=== PATIENT | female | born 1945 | race Caucasian/White ===

== ENCOUNTER → 2017-01-07 | Outpatient (CLI) | payer BC ==
[~2017-01-07] MED LIST: CALC-112 PO; CETI-222 PO; GLUC-149 PO; LEVO100T PO; OMEG1CAP6 PO; OMEP40CA6 PO; PREMARIN VAG VG; RALO60TA PO; REGADENOSON 0.4 MG/5 ML SYRINGE ONE; RIZA10TA20 PO; ROSU10TA PO
== END | disposition home or self-care (01) ==
LOC: CFH 12:08
PROVIDERS: ATTEND Internal Medicine Cardiovascular Disease
DX: Z01.810 Encounter for preprocedural cardiovascular examination (principal); I25.9 Chronic ischemic heart disease, unspecified; I44.7 Left bundle-branch block, unspecified
CPT/HCPCS: 78452; 93017; 93306; A9502; J2785

== ENCOUNTER 2017-02-03 10:02 | Day surgery (SDC) | payer BC ==
[2017-02-01 09:41] VITALS: BP 142/85
[2017-02-01 10:22] LABS: BLOOD UREA NITROGEN 13 mg/dL (7-18)
[2017-02-01 10:24] LABS: HEMATOCRIT 39.4 % (34.6-47.8); HEMOGLOBIN 13.1 g/dL (11.7-16.4); WHITE BLOOD COUNT 6.1 x10^3/uL (3.4-10)
[~2017-02-03] VITALS: Ht 170.2 cm; Wt 79.5 kg
[~2017-02-03 10:02] MED LIST changes: +ASPI-496 PO; +LISI2.5T PO; -REGADENOSON 0.4 MG/5 ML SYRINGE ONE
[2017-02-03] MEDS ORDERED: SODIUM CHLORIDE 0.9% 1,000 ML IV SCH (10:32)
[2017-02-03] MEDS ORDERED: BISACODYL 5 MG EC TABLET PO PRN (11:00)
[2017-02-03] MEDS ORDERED: ZOLPIDEM 5MG TABLET PO PRN (11:00)
[2017-02-03] MEDS ORDERED: ONDANSETRON 2MG/ML, 2ML IVPush PRN (11:00)
[2017-02-03] MEDS ORDERED: BISACODYL 10 MG SUPP PR PRN (11:00)
[2017-02-03] MEDS ORDERED: ACETAMINOPHEN 325 MG TABLET PO PRN (11:00)
[2017-02-03] MEDS ORDERED: ASPIRIN 325 MG TABLET EC PO ONE (11:00)
[2017-02-03] MEDS ORDERED: MIDAZOLAM 1 MG/ML, 5ML ONE (11:48)
[2017-02-03] MEDS ORDERED: LIDOCAINE 2%, 20ML ONE (11:48)
[2017-02-03] MEDS ORDERED: FENTANYL PF 100 MCG/2ML ONE (11:48)
== END 2017-02-03 15:00 | disposition home or self-care (01) ==
LOC: CACL 10:02
PROVIDERS: ATTEND Internal Medicine Cardiovascular Disease
DX: I25.10 Atherosclerotic heart disease of native coronary artery without angina pectoris (principal); I42.9 Cardiomyopathy, unspecified; E78.5 Hyperlipidemia, unspecified; E11.9 Type 2 diabetes mellitus without complications; I44.7 Left bundle-branch block, unspecified; E03.9 Hypothyroidism, unspecified; Z79.82 Long term (current) use of aspirin; Z88.8 Allergy status to other drugs, medicaments and biological substances
CPT/HCPCS: 36415; 71020; 80048; 85025; 85610; 85730; 93458; 99156; C1760; C1894; J2250; J3010; J3490; Q9967

== ENCOUNTER → 2018-11-22 | Outpatient (CLI) | payer BC ==
[~2018-11-22] MED LIST changes: -ROSU10TA PO; +ROSU10TA2 PO
== END | disposition home or self-care (01) ==
LOC: CFH 09:23
PROVIDERS: ATTEND Internal Medicine Cardiovascular Disease
DX: I34.0 Nonrheumatic mitral (valve) insufficiency (principal); I42.9 Cardiomyopathy, unspecified
CPT/HCPCS: 93306

== ENCOUNTER 2021-03-09 07:26 | Outpatient (CLI) | payer BC ==
[~2021-03-09 07:26] MED LIST changes: -LISI2.5T PO; +LISI2.5T12 PO; -OMEP40CA6 PO; +OMEP40CA8 PO
[2021-03-09] MEDS ORDERED: REGADENOSON 0.4 MG/5 ML SYRINGE ONE (07:36)
[2021-03-09] MEDS ORDERED: AMINOPHYLLINE 25 MG/ML, 10ML ONE (11:36)
== END 2021-03-09 23:59 | disposition home or self-care (01) ==
LOC: CFH 07:26
PROVIDERS: ATTEND Internal Medicine Cardiovascular Disease
DX: I21.29 ST elevation (STEMI) myocardial infarction involving other sites (principal); I25.5 Ischemic cardiomyopathy
CPT/HCPCS: 78452; 93017; A9502; J0280; J2785